=== PATIENT | female | born 1935 | race African-American/Black ===

== ENCOUNTER 2022-01-01 17:09 | Emergency (ER) | payer BC, MEDICARE ==
[~2022-01-01] VITALS: Ht 157.5 cm; Wt 63.0 kg
[~2022-01-01 17:09] MED LIST: ATOR20TA PO; AZIL1TAB3 PO; CLOP-31 PO; SOLI10TA PO
[2022-01-01 19:11] LABS: HEMATOCRIT. 35.2 % (36.0-48.0); HEMOGLOBIN. 11.9 g/dL (12.0-16.0); LYMPHOCYTES % 36.6 % (20.0-50.0); MEAN CORPUSCULAR HEMOGLOBIN 27.5 pg (28.0-32.0); MEAN CORPUSCULAR VOLUME 81.4 fL (81.0-99.0); MEAN PLATELET VOLUME 9.7 fl (7.4-10.4); MONOCYTES % 6.9 % (2.0-8.0); NEUTROPHILS % 53.5 % (40.0-76.0); PLATELET 83 x1000/uL (130-400); RED BLOOD CELL COUNT 4.32 mill/uL (4.2-5.4); RED CELL DISTRIBUTION WIDTH 16.7 % (11.6-14.6)
[2022-01-01 19:16] LABS: CHLORIDE 109 mEq/L (98-107)
[2022-01-01] MEDS: SODIUM CHLORIDE 0.9% 1,000 ML IV NR ×2 (22:16→23:50)
[2022-01-01 23:30] VITALS: BP 163/92
[2022-01-02 00:31] LABS: CLARITY URINE CLEAR (CLEAR); COLOR URINE YELLOW (YELLOW); KETONES URINE NEGATIVE (NEGATIVE); LEUKOCYTE ESTERASE URINE 3+ (NEGATIVE); NITRITE URINE NEGATIVE (NEGATIVE); OCCULT BLOOD URINE 1+ (NEGATIVE); PH URINE 6.5 (4.5-8.0); PROTEIN URINE NEGATIVE (NEGATIVE); SPECIFIC GRAVITY URINE 1.013 (1.005-1.030); UROBILINOGEN URINE 0.2 E.U./dL (0.2-1.0)
[2022-01-02] MEDS ORDERED: CEPH500C2 MT (01:01)
== END 2022-01-02 02:00 | disposition home or self-care (01) ==
LOC: ER 17:44
DX: R68.89 Other general symptoms and signs (principal); Z90.710 Acquired absence of both cervix and uterus; Z98.890 Other specified postprocedural states
CPT/HCPCS: 36415; 76856; 80053; 81003; 85025; 96360; 99285

== ENCOUNTER 2023-11-26 11:56 | Emergency (ER) | payer BC ==
[~2023-11-26] VITALS: Ht 154.9 cm; Wt 64.0 kg
[~2023-11-26 11:56] MED LIST changes: +CEPH500C2 MT
[2023-11-26 12:03] VITALS: O2SAT 99
[2023-11-26 17:58] VITALS: BP 162/84; PULSE 65; RESP 19; TEMP 98.4
== END 2023-11-26 18:02 | disposition home or self-care (01) ==
LOC: ER 11:56
DX: M25.531 Pain in right wrist (principal); M79.641 Pain in right hand; Z90.710 Acquired absence of both cervix and uterus; Z79.899 Other long term (current) drug therapy
CPT/HCPCS: 73110; 73130; 99284

== ENCOUNTER 2024-01-25 10:36 | Emergency (ER) | payer BC ==
[~2024-01-25] VITALS: Ht 165.1 cm; Wt 91.0 kg
[2024-01-25 10:46] VITALS: BP 184/83; PULSE 67; RESP 18; TEMP 98.5; O2SAT 100
== END 2024-01-25 13:43 | disposition home or self-care (01) ==
LOC: ER 10:36
DX: M25.552 Pain in left hip (principal); Z88.5 Allergy status to narcotic agent; Z88.6 Allergy status to analgesic agent; Z98.890 Other specified postprocedural states; Z90.710 Acquired absence of both cervix and uterus; W18.30XA Fall on same level, unspecified, initial encounter; Y93.89 Activity, other specified; Y92.89 Other specified places as the place of occurrence of the external cause; Y99.8 Other external cause status
CPT/HCPCS: 73502; 99283